=== PATIENT | male | born 2000 | race Caucasian/White ===

== ENCOUNTER 2024-07-18 21:21 | Emergency (ER) | payer SELFPAY ==
[2024-07-18 21:22] VITALS: BP 123/89
[2024-07-18 21:30] VITALS: BMI 31.0
--- NOTE | 2024-07-18 21:36 | ED.GENMED ---
History of Present Illness
General
Chief Complaint: Crisis Evaluation
Source: patient and police
Exam Limitations: none
Time Seen by Provider: 07/18/24 21:26
Nursing documentation reviewed up to this point in time: agreed with
History of Present Illness
History of Present Illness:
24-year-old male with past medical history of asthma, anxiety/depression, PTSD who presents to the emergency department via [place] police due to suicidality. Patient reports 'I have nothing, I do not to be alive.' He says that 'I just want the
technical inspector come back in here and shoot me.' He says 'I just want to kill myself, but I do not know how.' He denies prior suicide attempts but reports frequent previous suicidal ideations. He says that he currently lives in his car and he has poor
relationship with his family and has few friends. He denies any acute stressor that brought the symptoms on today. He denies any drug or alcohol use. He is on multiple medications including Prozac and as needed hydroxyzine and reports compliance.
Past History
Past History
ED Past Medical History: Asthma
ED Past Surgical History: Other (toes, finger surgery, lazy eye)
Social History
Tobacco: Non-smoker
Alcohol: None
Drug: None
Personal: Single
Living: with family
Employment: Employed
Review of Systems
Review of Systems
All Other Systems: ROS reviewed and negative except as documented in HPI and ROS
Constitutional: Denies fever
Respiratory: Denies trouble breathing
Cardiac: Denies chest pain
ABD/GI: Denies abdominal pain or vomiting
Neurological: Denies dizzy or headache
Psychiatric: Reports depression and suicidal; Denies hallucinations
Phy Exam
Physical Exam
Physical Exam:
General: Awake, alert, oriented x3; sitting in bed eating sandwich
Head: Normocephalic, atraumatic
Eyes: Conjunctiva normal, pupils equal round reactive to light bilaterally
Throat: Airway intact, handling secretions
Neck: Trachea midline, supple without meningismus
Lungs: Clear to auscultation bilaterally, no wheezing, rales, rhonchi
Heart: Regular rate and rhythm, no murmurs, gallops, or rubs
Abd: Soft, non distended, nontender
Neuro: No gross deficits
Skin: no rash
Extremities: Warm and well-perfused
Scores
Heart Failure Risk
Heart Failure Risk Score: Not Applicable
Heart Score for Chest Pain Patients
STEMI patient?: Not applicable
Withdrawal Assessment of Alcohol
Withdrawal Assessment Completed?: Not applicable
Course
Orders/Labs/Results
Orders:
Orders
07/18/24 21:27
1:1 Observation - Suicide/ Violent Behavior As Directed
Crisis Consult Routine
Reason for Consult: suicidal
07/18/24 21:28
Acetaminophen Urgent
Alcohol Urgent
Complete Blood Count/With Diff Urgent
Comprehensive Metabolic Panel Urgent
Drug Screen, Urine [Urine Drug Abuse Screen] Urgent
Date Specimen was Collected: 07/18/24
Time Specimen was Collected: 21:35
Salicylate Urgent
Vital Signs
Initial and Last Documented VS:
Initial Vital Signs
Temp Pulse Resp BP Pulse Ox
36.8 C 108 20 123/89 99
07/18/24 21:22 07/18/24 21:22 07/18/24 21:22 07/18/24 21:22 07/18/24 21:22
Last Documented Vital Signs
Temp Pulse Resp BP Pulse Ox
36.8 C 108 20 123/89 99
07/18/24 21:22 07/18/24 21:22 07/18/24 21:22 07/18/24 21:22 07/18/24 21:22
MDM/Problems Addressed
Differential Diagnosis Includes:
Suicidal ideation
MDM/Problems Addressed:
24-year-old male presents to the emergency room with police reporting suicidality and depression. Tachycardic otherwise normal vitals. Physical exam as above. Case discussed with crisis team�patient is agreeable to inpatient psychiatric
treatment. Will send basic screening labs and monitor pending inpatient placement.
Chronic conditions affecting care:
Depression/anxiety
*Pulse Oximetry
Patient hypoxic: no
*Critical Care Note
Total Time (30-74mins, 75-104mins- exclusive of procedures): Not Applicable
Data Reviewed
Source: patient and police
Patient Management
Discussion with other providers: Other (Discussed with crisis team)
ED Attending Note
-
Portions of this chart may have been created with voice recognition software.� Occasional wrong word or��sound alike� substitutions may have occurred due to the inherent limitations of voice recognition software.
Discharge Plan
Departure
Patient Disposition: Psych Facility
Date of Disposition: 07/18/24
Time of Disposition: 21:42
Discharge Problem:
Suicidal ideation
Prescriptions:
No Action
albuterol sulfate [Ventolin HFA] 90 MCG/PUFF HFA aerosol inhaler
1 puff inhalation Q4H PRN (Reason: SOB) Qty: 2 0RF
albuterol sulfate 2.5 MG/3 ML solution for nebulization
2.5 mg inhalation R Q4HPRN PRN (Reason: wheezing, shortness of breath) Qty: 1 0RF
Interventions
Interventions:
*Risk Screen - Suicide Last Done: 07/18/24 21:31
*General Assessment Last Done: 07/18/24 21:28
*Neglect/Abuse Screening Last Done: 07/18/24 21:31
ED- Fall Risk Assessment Last Done: 07/18/24 21:31
*ED COVID-19 Vaccine History Last Done: 07/18/24 21:28
ED-Psychological Assessment Last Done: 07/18/24 21:31
Discharge Date and Time
Print Language: [place]
[2024-07-18 21:53] LABS: % Basophils 0.2 % (0-2); % Eosinophils 1.2 % (0-6); % Immature Granulocytes 0.3 % (0-0.5); % Lymphocytes 18.5 % (20.5-51.1); % Monocytes 7.3 % (1.7-9.3); % Neutrophils 72.5 % (42.2-75.2); Absolute Eosinophils 0.1 10^3/uL (0-0.7); Absolute Monocytes 0.8 10^3/uL (0.1-0.6); Absolute Neutrophils 7.6 10^3/uL (1.4-6.5); Hematocrit 45.1 % (39.0-52.0); Hemoglobin 15.8 g/dL (13.0-18.0); Mean Corpuscular Hgb 29.3 pg (27.0-31.0); Mean Corpuscular Volume 83.5 fL (80.0-94.0); Mean Platelet Volume 8.7 fL (7.4-10.4); Nucleated Red Blood Cells % 0 % (-); Platelet Count 341 10^3/uL (130-400); White Blood Cell Count 10.5 10^3/uL (4.8-10.8)
[2024-07-18 22:02] LABS: Amphetamines Negative (Negative); Barbiturates Negative (Negative); Benzodiazepines Positive (Negative); Buprenorphine Negative (Negative); Cocaine Negative (Negative); Marijuana Positive (Negative); Methadone Negative (Negative); Methamphetamines Negative (Negative); Opiates Negative (Negative); Phencyclidine Negative (Negative); Tricyclic Antidepressants Positive (Negative)
[2024-07-18 22:05] LABS: ALT (SGPT) 29 U/L (0-50); AST (SGOT) 23 U/L (17-59); Acetaminophen < 10 ug/ml (10-30); Albumin 4.8 g/dl (3.5-5.0); Alkaline Phosphatase 88 U/L (38-126); Blood Urea Nitrogen 15 mg/dl (9-20); Calcium 9.3 mg/dl (8.4-10.2); Carbon Dioxide 26 mmol/L (22-30); Chloride 100 mmol/L (98-107); Estimated Creatinine Clearance > 125 ml/min; Glucose 92 mg/dl (70-99); Potassium 3.9 mmol/L (3.5-5.1); Salicylate < 1.0 mg/dl (2.0-20.0); Sodium 139 mmol/L (135-145); Total Bilirubin 0.3 mg/dl (0.2-1.3); Total Protein 7.6 g/dl (6.3-8.2); eGFR > 60.00
[2024-07-18 22:06] LABS: Alcohol None Detected
[2024-07-18 22:18] LABS: Fentanyl, Urine Negative (Negative)
[2024-07-19] MEDS: SAPHRIS 5 MG SL (07:55)
[2024-07-19] MEDS: ProAIR HFA INHALER 2 PUFF INH (07:55)
[2024-07-19 08:00] VITALS: BP 130/71
--- NOTE | 2024-07-19 08:06 | EDRN ---
beadworker at bedside at this time. Patient repeatedly asking this RN to kill him, and states he is going to drive his car into a wall when he gets out. Patient states he needs his 'asthma medicine.' Medication ordered and given (see MAR).
Patient is cooperative with care, VSS.
[2024-07-19 10:59] VITALS: BP 130/85
== END 2024-07-19 11:30 ==
LOC: EMR 21:21
PROVIDERS: CONSULT PHYSICIAN Psychiatry & Neurology Psychiatry; EMERGENCY PHYSICIAN Emergency Medicine
DX: R45.851 Suicidal ideations (principal); J45.909 Unspecified asthma, uncomplicated; F32.A Depression, unspecified; F43.10 Post-traumatic stress disorder, unspecified; Z59.02 Unsheltered homelessness
CPT/HCPCS: 99283; 94640; 80053; 80143; 80179; 80306; 80307; 82077; 85025